=== PATIENT | male | born 2000 | race Caucasian/White ===

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

== ENCOUNTER 2022-12-08 18:22 | Emergency (ER) | payer OTHER ==
[2022-12-08] MEDS ORDERED: ACETAMINOPHEN 500 MG TABLET (FP) PO ONE (18:37)
[2022-12-08 18:38] VITALS: BP 124/78; PULSE 66; RESP 18; TEMP 97.8; BMI 36.8
[2022-12-08] MEDS ORDERED: ACETAMINOPHEN 500 MG TABLET (FP) ONE (18:41)
[2022-12-08] MEDS ORDERED: KETOROLAC TROMETHAMINE 60 MG/2 ML VIAL IM ONE (19:34)
[2022-12-08] MEDS ORDERED: IBUPROFEN 400 MG TABLET (FP) PO ONE ×2 (19:37→19:43)
== END 2022-12-08 19:58 | disposition home or self-care (01) ==
LOC: FER 18:22
DX: S62.91XA Unspecified fracture of right hand, initial encounter for closed fracture (principal); W22.8XXA Striking against or struck by other objects, initial encounter
CPT/HCPCS: 73130-TC-RT-FY; 99283-25